=== PATIENT | female | born 1975 | race Caucasian/White ===

== ENCOUNTER 2020-12-27 08:31 | Day surgery (SDC) | payer OTHER, SELFPAY ==
--- NOTE | 2020-12-24 17:36 | PCM.HPOB.BLA ---
- Problem List (1) Menorrhagia Status: Acute History and Physical Date of Admission: 12/27/20 DATE OF SERVICE: December 24, 2020 ? PROBLEM:?menorrhagia ? DIAGNOSIS:?menorrhagia ? SUBJECTIVE:?She reports menorrhagia. Declines all medical management options. ? EMB: FINAL DIAGNOSIS Endometrium, biopsy - Late secretory phase endometrium. ? Pelvic US: Impression anteverted uterus that measures 96 mm x 52 mm x 72 mm. Intramural fibroid measuring 5.4cm in greatest dimension. The central endometrium complex measures 9.1 mm in combined thickness. No abnormal blood flow to suggest a polyp or focal endometrial pathology is observed within the endometrial complex. The contour of the endometrial cavity was normal on 3-D imaging. Both ovaries are visualized . left ovary with small simple appearing cyst measuring 2.3cm in greatest dimension. Right ovary is normal. No adnexal masses were observed. There is no free fluid visualized in the peritoneal cavity. Recommendations Follow up as clinically indicated. ? PAST SURGICAL HISTORY:? PAST SURGICAL HISTORY PAST SURGICAL HISTORY Procedure Laterality Date ? COLPOSCOPY (VAGINOSCOPY) ? 09/2008 ?08/04 ? Colposcopy ? LIGATE FALLOPIAN TUBE ? ? ? Tubal ligation ? PAST SURGICAL HISTORY OF Left 01/21/2012 ?? ? Carpal Tunnel Surgery, Dr. Helder Clark ? PAST MEDICAL HISTORY:? PAST MEDICAL HISTORY PAST MEDICAL HISTORY Diagnosis Date ? Allergic rhinitis ? ? Anxiety ? ? Carpal tunnel syndrome ? ? Bilateral; Left>?right ? ? Cervical high risk human papillomavirus (HPV) DNA test positive 2008 ? Costal chondritis ? ? Dysfunction of eustachian tube ? ? Dysmenorrhea ? ? Emotional stress ? ? FH: premature coronary heart disease ? ? Gastroesophageal reflux disease ? ? Heavy tobacco smoker ? ? Migraine ? ? Mild dysplasia of cervix 2008 ? Minor depressive disorder ? ? Palpitations ? ? Papanicolaou smear of cervix with low grade squamous intraepithelial lesion (LGSIL) 2008 ? PVC (premature ventricular contraction) ? ? SOCIAL HISTORY:? SOCIAL HISTORY Social History ? Tobacco Use ? Smoking status: Current Every Day Smoker ? ? Packs/day: 0.50 ? ? Years: 15.00 ? ? Pack years: 7.50 ? ? Types: Cigarettes ? ? Last attempt to quit: 05/27/2011 ? ? Years since quittin.5 ? Smokeless tobacco: Never Used ? Tobacco comment: Start date: 1994; Not interested in quitting smoking; Amount: 1-9 cigs/day; Tobacco reviewed with patient 01/18/2015 Substance Use Topics ? Alcohol use: No ? Drug use: No ? ALLERGIES ALLERGIES Allergen Reactions ? Amoxicillin ? Hives Current Outpatient Medications on File Prior to Visit Medication Sig ? naproxen (NAPROSYN) 500 mg tablet Take 1 tablet by mouth twice daily as needed (FOR PAIN - TAKE WITH FOOD.). ? fluticasone (FLONASE ALLERGY RELIEF) 50 mcg/actuation nasal spray Use 1 [place] in each nostril once daily. No current facility-administered medications on file prior to visit. ? ? OBJECTIVE: ? VITALS:? BP 106/64 ? Pulse 78 ? Resp 14 ? Ht 5' 2 (1.575 m) ? Wt 153 lb 9.6 oz (69.7 kg) ? LMP 12/11/2020 (Exact Date) ? BMI 28.09 kg/m? ? HEENT: ?Normocephalic, atraumatic, Mucus membranes moist without lesions. ? NECK: ???Soft and Supple. ?No adenopathy , thyromegaly or bruits. ? SKIN: No lesions. ? CHEST: Clear to auscultation. ?No wheezes or rales. ?Good air exchange. ? HEART: Regular rate and rhythm ?No S3 or S4. ?No gallops or rubs. ? BACK: Nontender with no CVA tenderness. ? ABDOMEN: Soft, non-tender, non-distended, no masses, no hepatosplenomegaly. ? LOWER EXTREMITIES: There was no pitting edema, no palpable cords and no skin changes. ? ? ? ASSESSMENT:?menorrhagia ? PLAN:?Discussed medical management options. Recommend trying progesterone IUD. Patient declines all medical management options. She understands higher risk of failure given fibroids. She understands the ablation may not be able to be completed if the fibroid is submucosal and too linda to resect. She understands may need to resect the fibroid at the time of surgery. Discussed hysteroscopy, D&C, uterine ablation in detail.?The rationale for the proposed surgery was discussed in addition to risks, benefits, and alternatives. ?General pre- and post-operative care was reviewed. ?Questions were answered. ?After discussion, the patient indicated a desire to proceed with the planned surgery. ? Dalia Ortiz,?DO
[2020-12-27] VITALS (7 sets, daily range): BP systolic 107–143; BP diastolic 74–83; PULSE 68–81; RESP 14–16; TEMP 36.2–36.7; O2SAT 99–100; BMI 27.5
[2020-12-27 09:11] LABS: Internal QC Validated? YES +Cl - CLEAR BKGD; Pregnancy, Urine Negative Negative
[2020-12-27 09:19] LABS: Hematocrit 42.6 % (37-47); Hemoglobin 14.9 g/dL (12.0-15.0); Mean Corpuscular Volume 94.2 fL (81-99); Mean Platelet Vol. 9.1 fl (6.2-12.0); Platelet Count 318 K/mm3 (150-450); RBC Distribution Width SD 44.2 fl (35.1-43.9); Red Blood Count 4.52 M/mm3 (4.2-5.4); White Blood Count 8.4 K/mm3 (4.4-11.0)
[2020-12-27] MEDS: Lactated Ringers 1,000 ML 100 ML IV (09:25)
--- NOTE | 2020-12-27 10:35 | EMB_PTH ---
PATIENT: ALONSO GALICIA [place] [facility] [id number] AGE/SX: 45/F ROOM: RE12/27/[address]: Dr. Dalia Ortiz DO : 1975 BED: DIS: 12/27/2020 SPEC #: [id number] RECD: 12/27/20 14:22 STATUS: JANIE ADIA #: [id number] PARRISH: 12/27/20 10:[address]: Dalia Ortiz DEPT: SURGICAL PATHOLOGY RECD BY: Alia Singleton ENTERED: 12/28/20 08:36 SP TYPE: ENDOM BX/C OTHR DR: Dr. Eloise Enrique MD Tissues: Endometrium, NOS Procedures: Surgery Specimen Level IV HEADER OPERATION: Hysteroscopy, endometrial ablation, Karol PRE-OP DIAGNOSIS: Menorrhagia TISSUE SUBMITTED: Endometrial curettings MICROSCOPIC DIAGNOSIS Endometrium, curetting: Transition endometrium with focal glandular breakdown. Strips of benign superficial endocervix and squamous mucosa. AM:papo 12/31/2020 MICROSCOPIC DESCRIPTION Slides are reviewed. GROSS DESCRIPTION Received in fixative is one container labeled with the patient's name and designated endometrial curettings. The specimen consists of multiple fragments of langley hemorrhagic soft tissue that in aggregate measure 2.5 x 1 x 0.1 cm. The specimen is totally submitted in one cassette. / SJ:papo 12/28/20 TC:5 CPT: 05689
[2020-12-27] MEDS: Lidocaine 1%/Epi 1:200 (30ml) 30 ML AMPUL (11:26)
--- NOTE | 2020-12-27 12:19 | DCINST_ITS ---
Discharge Diet: No Restrictions Discharge Activity: May Drive - at least 24 hours after surgery, May Shower May resume sexual activity in: 1 week - no tampons, intercourse, hot tubs, tub baths Weight Bearing Status: Weight bearing as tolerated Lifting Restrictions: None Call your doctor if you observe: Fever of 101 or Higher, Inability to urinate, Inability to have a bowel movement, Using more than one pad per hour, Shortness of breath, Dizziness, Fainting spells, Swelling in the ankles, Chest pain, Increased palpitations (irregular heartbeat), Calf discomfort, Uncontrolled pain Allergies/Adverse Reactions: Allergies amoxicillin Allergy (Verified 12/20/20 13:32) Hives Medications to take at Discharge Ibuprofen [Motrin] 600 mg PO Q6H PRN PRN #30 tab 12/27/20 Oxycodone HCl/Acetaminophen [Percocet 5-325 mg Tablet] 1 each PO Q6H PRN PRN 7 Days #4 tablet 12/27/20 The following prescriptions were given: Ibuprofen [Motrin] 600 mg PO Q6H PRN PRN #30 tab PRN Reason: Pain Score 6-10 Transmission Status: Pending to [facility] Oxycodone HCl/Acetaminophen [Percocet 5-325 mg Tablet] 1 each PO Q6H PRN PRN 7 Days #4 tablet PRN Reason: Pain Score 6-10 Transmission Status: Sent to [facility] Orders to be completed after discharge: Type & Screen - PAT ONLY Time Frame: 12/27/20, Facility: [facility], Location: Laboratory CBC-Complete Blood Cnt No Diff Time Frame: 12/27/20, Facility: [facility], Location: Laboratory Primary Care Physician: Eloise Enrique MD [Primary Care Provider] - Test Results: Test results from this visit will be discussed in further detail at your follow- up appointment, if applicable. Please Follow Up With: Dalia Ortiz DO When: 1 week
--- NOTE | 2020-12-27 12:20 | PCM.OPRPT ---
Problem List (1) Menorrhagia Status: Acute Report of Operation Date of Procedure: 12/27/20 Pre-Operative Diagnosis: Menorrhagia Post-Operative Diagnosis: As above Surgery/Procedure Performed:: Hysteroscopy, D&C, Karol uterine ablation Description of Surgical Findings:: Normal appearing uterine cavity. No fibroids or polyps noted. Bilateral tubal ostia visualized. The endometrium was thin appearing. Minimal to no descent of the cervix and uterus. Type of Anesthesia:: Local, MAC Special Medications: None Specimen's removed: Endometrial curettings Drains: None Estimated Blood Loss (mL): < 50 cc Description of Procedure: The patient was taken to the operating room where MAC anesthesia was found to be adequate. She was prepped and draped in dorsal lithotomy position using yellow fin stirrups. A weighted speculum was placed in the vagina exposing cervix. The anterior lip of the cervix was grasped with single-tooth tenaculum, and the cervix was serially dilated. The hysteroscope was advanced to the fundus of uterus the uterus was distended with normal saline for distention media. The cervical canal had a ridge posteriorly, and the hysteroscopy had to be advanced up and over this ridge. The uterine cavity was normal-appearing and bilateral tubal ostia were visualized. Pictures were taken. The hysteroscope was then removed. A sharp curettage was performed for endometrial curettings, which were sent to pathology for review. The uterus sounded to 8 cm. The cervical length was 3 cm. The uterine cavity was 5 cm. The Karol ablation device was advanced to the fundus of the uterus after the cavity length was set to 5 cm. The device passed cavity assessment test. The Karol device was deployed and after cauterization the device was removed. Bleeding was hemostatic. All instruments removed from the vagina. Instrument sponge counts were correct. Vaginal sweep was performed. Patient was taken recovery in stable condition. Grafts/Implants Used: None - Complications None - Admit VTE Documentation VTE Present on Admission: No VTE Mechan Device Prophylaxis: SCD's
[2020-12-27] MEDS: HYDROcodone Bitartrate/Apap 5/325 Tablet PO (13:02)
== END 2020-12-27 13:50 | disposition home or self-care (01) ==
LOC: SDC 08:32 → AC 08:32
PROVIDERS: PCP Internal Medicine; Referring Provider Obstetrics & Gynecology; Visit Provider Obstetrics & Gynecology
PROC: 0U5B8ZZ Destruction of Endometrium, Via Natural or Artificial Opening Endoscopic (ICD-10-PCS; CPT 58558; principal; 2020-12-27 10:20)
DX: N92.0 Excessive and frequent menstruation with regular cycle (principal); Z20.828 Contact with and (suspected) exposure to other viral communicable diseases; F17.210 Nicotine dependence, cigarettes, uncomplicated
CPT/HCPCS: 00952; 58563; 81025; 85027; 86850; 86900; 86901; 87426; 88305; C9803; J7120; J2405

== ENCOUNTER 2021-10-10 06:33 | Day surgery (SDC) | payer OTHER, SELFPAY ==
--- NOTE | 2021-10-07 09:08 | EKG12_ITS ---
Test Reason : PREOP Blood Pressure : / mmHG Vent. Rate : 073 BPM Atrial Rate : 073 BPM P-R Int : 130 ms QRS Dur : 084 ms QT Int : 368 ms P-R-T Axes : 072 062 058 degrees QTc Int : 405 ms Normal sinus rhythm Low voltage QRS Borderline ECG Confirmed by MIGUEL WANG, BABAR ([id number]), communications editor POORNIMA HERNANDEZ ([id number]) on 10/08/2021 7:28:04 AM Referred By: Dalia Ortiz Confirmed By:BABAR RIVERA MD
[2021-10-07 10:56] LABS: Hematocrit 43.5 % (37-47); Hemoglobin 14.9 g/dL (12.0-15.0); Mean Corp Hgb Conc 34.3 g/dL (32-36); Mean Corpuscular Hgb 32.5 pg (27.0-32.0); Mean Corpuscular Volume 94.8 fL (81-99); Mean Platelet Vol. 9.7 fl (6.2-12.0); Platelet Count 306 K/mm3 (150-450); RBC Distribution Width CV 13.4 % (11.6-14.6); RBC Distribution Width SD 46.8 fl (35.1-43.9); Red Blood Count 4.59 M/mm3 (4.2-5.4); White Blood Count 8.2 K/mm3 (4.4-11.0)
[2021-10-07 11:16] LABS: Magnesium 2.2 mg/dL (1.6-2.6)
[2021-10-10] VITALS (10 sets, daily range): BP systolic 134–162; BP diastolic 79–96; PULSE 52–80; RESP 14–18; TEMP 36–36.8; O2SAT 99–100; BMI 26.6
[2021-10-10] MEDS: Lactated Ringers 1,000 ML 40 ML IV ×3 (07:00→12:18)
[2021-10-10 07:07] LABS: Internal QC Validated? YES +Cl - CLEAR BKGD; Pregnancy, Urine Negative Negative
[2021-10-10] MEDS: Gabapentin 600 MG Tablet PO (07:34)
[2021-10-10] MEDS: Scopolamine 1mg/72hr Patch 1 PATCH TD (07:34)
[2021-10-10] MEDS: dexAMETHasone 10 MG/ML Vial 8 MG IV (07:35)
[2021-10-10] MEDS: Acetaminophen 500 MG Tablet 1000 MG PO ×2 (07:35→15:12)
[2021-10-10] MEDS: Celecoxib 200 MG Capsule 400 MG PO (07:35)
[2021-10-10] MEDS: Phenazopyridine 95 MG Tablet 190 MG PO (07:35)
[2021-10-10 08:35] LABS: Bedside Glucose 85 mg/dL (70-110)
--- NOTE | 2021-10-10 08:38 | PCM.DC ---
Discharge Instructions Diet Discharge Diet: No restrictions Activity Discharge Activity: May Not Drive (Until you feel strong enough to slam on a brake or turn a steering wheel sharply. Also once you are no longer taking pain medication) and May Shower Return to work on:: 11/25/21 May resume sexual activity in: 6-8 weeks (Nothing in the vagina until your 6 week post op appointment) Weight Bearing Status: Weight bearing as tolerated Lifting Restrictions: Nothing greater than 5-10 lbs Additional Activity Instructions:: Avoid pushing and pulling heavier objects (for example, vacuum) Dressing / Incision Call your doctor if your incision/area has: Sudden Increased Bleeding, Increased Pain/ Swelling, Increased Redness, Foul Smelling Discharge and Swelling at the incision site Call your doctor if you observe: Fever of 101 or Higher, Numbness or Tingling, Inability to urinate, Inability to have a bowel movement, Using more than 1 pad per hour, Shortness of breath, Dizziness, Fainting spells, Swelling in the ankles, Chest pain, Increased palpitations (irregular heartbeat), Calf discomfort and Uncontrolled pain Suture Line Care: Avoid Pulling/Pushing and Avoid Pinching/Bending Remove Dressing in: leave until fall off (There is suture that will dissolve and glue over top. As the glue comes off you can peel it off, or cut it) Cleanse incision/area with: Soap & Water Follow Up Care Please Follow Up With: Diana When: 1 week and 6 weeks Test Results: Test results from this visit will be discussed in further detail at your follow-up appointment, if applicable. Discharge Plan Admission Primary Reason for Your Visit: Hysterectomy Attending Provider: Dalia Ortiz Primary Care Provider: Eloise Enrique Instructions Patient Instructions: Laparoscopic Hysterectomy Your ... Discharge Orders/Prescriptions Prescriptions: New ibuprofen 800 mg tablet 800 mg PO Q8H PRN (Reason: pain) Qty: 30 RF: 0 oxycodone-acetaminophen [Percocet] 5-325 mg tablet 1 tab PO Q6H PRN (Reason: pain) 7 Days Qty: 15 RF: 0 docusate sodium [Colace] 100 mg capsule 100 mg PO BID Qty: 30 RF: 0 Discontinued ibuprofen 600 MG tablet 600 mg PO Q6H PRN PRN (Reason: Pain Score 6-10) Qty: 30 RF: 0 Referrals / Follow Up: Eloise Enrique MD [Primary Care Provider] - Disposition Disposition (needs filled in before D/C Order can be placed): Home, Self Care
--- NOTE | 2021-10-10 08:50 | HYST_PTH ---
PATIENT: ALONSO GALICIA [place] [facility] [place][id number] AGE/SX: 46/F ROOM: RE10/10/[address]: Dr. Dalia Ortiz DO : 1975 BED: DIS: 10/10/2021 SPEC #: [id number] RECD: 10/10/21 10:46 STATUS: JANIE RESharona #: [id number] PARRISH: 10/10/21 08:[address]: Dalia Ortiz DEPT: SURGICAL PATHOLOGY RECD BY: Lee Hernandez ENTERED: 10/10/21 11:14 SP TYPE: HYSTERECT OTHR DR: Dr. Eloise Enrique MD Tissues: Uterus, NOS Procedures: Surgery Specimen Level V HEADER OPERATION: Total laparoscopic hysterectomy, salpingectomy, cystoscopy PRE-OP DIAGNOSIS: Persistent DUB despite uterine ablation TISSUE SUBMITTED: Uterus, cervix, bilateral fallopian tubes MICROSCOPIC DIAGNOSIS Uterus, hysterectomy: Cervix ? nabothian cysts and squamous metaplasia. Endometrium ? consistent with changes of ablative therapy. Mildly disordered proliferative endometrium. Myometrium ? leiomyomas. Focal adenomyosis. AM:papo 10/11/2021 MICROSCOPIC DESCRIPTION Slides are reviewed. GROSS DESCRIPTION Received in fixative is one container labeled with the patient's name and designated uterus. The specimen consists of a uterus with attached cervix and without fallopian tubes and ovaries measuring 11 x 8.5 x 6.7 cm and weighing 194 gm. The specimen has been previously opened. The endocervical canal measures 3.5 cm in length and is grossly unremarkable. The elongated endometrial cavity measures 4 x 2.2 cm. The reddish-langley endometrium measures up to 0.2 cm in thickness. The myometrium measures 1.5 cm in average thickness and is distorted by multiple spherical, rubbery nodules ranging in size from 0.9 to 6 cm. Sections of the nodules display a whorled appearance without areas of cyst formation, necrosis or hemorrhage. [employer] sections are submitted in nine cassettes as follows: 1 - anterior cervix, 2 - posterior cervix, 3 & 4 - anterior uterine wall, 5 & 6 - posterior uterine wall, 7 & 8 - largest myometrial mass, 9 - smaller myometrial masses. / AM:papo 10/10/21 TC:1 CPT: 67293
[2021-10-10] MEDS: Bupivacaine Mpf 0.5% 30 ML VIAL (10:25)
--- NOTE | 2021-10-10 11:09 | OP.PCM_ITS ---
Problems Associated Problem List Diagnoses (1) DUB (dysfunctional uterine bleeding): Report of Operation Date of Procedure: 10/10/21 Pre-Operative Diagnosis: DUB, history of uterine ablation, fibroid uterus Post-Operative Diagnosis: As above Surgery/Procedure Performed:: TLH, BS, cystoscopy Description of Surgical Findings:: Enlarged bulky uterus. Prior tubal ligation noted. Normal appearing ovaries bilaterally. Normal appearing pelvis. Surgeon: Dalia Ortiz nutrition services aide: Nathaniel Au Type of Anesthesia: General Special Medications: None Specimen's removed: Uterus, cervix, bilateral fallopian tubes Drains: Severino Estimated Blood Loss (mL): 50 Fluids Replaced: 1500 Description of Procedure: Patient was taken to the operating room where general anesthesia was induced. She was prepped and draped in the dorsal lithotomy position using yellowfin stirrups. A weighted speculum was placed in the vagina from below to expose the cervix. Severino catheter was placed in the bladder. The cervical os was dilated and the Gala manipulator was placed. The weighted speculum was then removed. Attention was then turned to the abdomen. Half percent Marcaine solution was infiltrated at all port sites. Beginning in the supraumbilical area the skin was first infiltrated and a 5 mm incision was made through the skin with a scalpel. Using the laparoscope, the trocar was placed under direct visualization. Once confirmed intraperitoneal, CO2 insufflation was started for maximum pressure of 20 mmHg. Examination of the peritoneal cavity revealed no signs of injury from entry. Patient was then placed in steep Trendelenburg position and 2 additional 5 mm trochars were placed. One trocar on the left and one on the right. Trochars were placed under direct visualization with no damage to underlying structures. The uterus was upheld from below and revealed an enlarged fibroid uterus. Bilateral tubes were normal-appearing. A prior tubal ligation was noted. Starting on the right side the fallopian tube was lifted towards the intra-abdominal wall exposing mesosalpinx. Working from distal to proximal the mesosalpinx was sequentially clamped, ligated, and cut using the LigaSure device hugging adjacent to the fallopian tubes. The tube was ligated and cut and removed. Following this the utero-ovarian ligament was clamped, sealed, and ligated. The ovarian pedicles was noted to be hemostatic. Attention was then turned to the other side. The same process was repeated on the left sequentially clamping, ligating and cutting the mesosalpinx. The round ligament was then ligated and cut. Following this the anterior leaf of the broad ligament was then taken down on the right side dissecting towards the peritoneal reflection at the base of the bladder adjacent to the cervix. The same process was then repeated on the left side such of both sides met anteriorly and was properly skeletonized. Once the bladder was appropriately dissected and freed from the lower anterior uterine segment and the tissue was skeletonized, the uterine arteries were bilaterally clamped and ligated. Pedicles were checked and hemostatic. At the level of the cuff of the uterine manipulator, the vaginal vault was incised circumferentially with monopolar hook. From below the uterus and cervix was delivered through the vagina after being bivalved given size of uterus and narrow introitus. The posterior vaginal cuff was then run using a 2-0 Vicryl in a running lock fashion for hemostasis. The vaginal vault was then closed with Vicryl using several interrupted [id number] sutures. Inspection of the vaginal cuff ensured hemostasis. A cystoscopy was performed noting a normal-appearing bladder with bilateral ureteral jets. Gloves were then changed and attention was turned to the abdominal portion again. The laparoscope was placed into the abdomen and CO2 insufflation was initiated. Hemostasis was noted from above. Elvia was placed over the vaginal cuff and pedicles. All port sites were removed and the abdomen was exsufflated. The skin was closed with Monocryl in a subcuticular fashion glue was placed over top. All instruments were removed from the vagina and the vaginal sweep was performed. Instrument, sponge, needle counts were correct. Patient was taken to recovery in stable condition Grafts/Implants Used: None Procedure Start Time: 09:00 Procedure Stop Time: 10:32 Complications None Admit VTE Documentation VTE Present on Admission: No VTE Mechan Device Prophylaxis: SCD's
[2021-10-10] MEDS: Metoclopramide 10 MG Tablet PO (15:10)
== END 2021-10-10 16:32 | disposition home or self-care (01) ==
LOC: SDC 06:35 → AC 06:35
PROVIDERS: PCP Internal Medicine; Referring Provider Obstetrics & Gynecology; Visit Provider Obstetrics & Gynecology
PROC: 0UT94ZZ Resection of Uterus, Percutaneous Endoscopic Approach (ICD-10-PCS; CPT 58571; principal; 2021-10-10 08:30)
DX: D25.9 Leiomyoma of uterus, unspecified (principal); N87.9 Dysplasia of cervix uteri, unspecified; N80.0 Endometriosis of uterus; N93.8 Other specified abnormal uterine and vaginal bleeding
CPT/HCPCS: 58571; 81025; 82962; 83735; 85027; 86850; 86900; 86901; 88307; 93005; J7120; J2405